=== PATIENT | male | born 1965 | race Caucasian/White ===

== ENCOUNTER 2018-09-05 15:58 | Emergency (ER) | payer OTHER ==
[2018-09-05] MEDS ORDERED: Fluorescein Sodium TOPICAL* 1 MG TEST STRIP OPHTHALMIC ONE (16:54)
[2018-09-05] MEDS ORDERED: Tetracaine 0.5% OPTH.SOL 4 ML* 1 DROP BTL BOTH EYES ONE (16:54)
--- NOTE | 2018-09-05 17:03 | UC ---
Eye Complaint HPI - HPI Summary HPI Summary: 53 yo male presents with right eye injury. He tells me that about 5-6 hours [employer] he was outside and a moving a tree branch out of his way when it snapped back and hit his face. Had some discomfort in his right eye that improved, but since that time has felt that there is something in his eye. Has been watering a bit. No vision changes. He does not wear contacts. - History of Current Complaint Stated Complaint: RIGHT EYE INJURY Time Seen by Provider: 09/05/18 16:54 Hx Obtained From: Patient Onset/Duration: Sudden Onset Severity Initially: Moderate Severity Currently: Moderate Pain Intensity: 6 Pain Scale Used: 0-10 Numeric - Allergies/Home Medications Allergies/Adverse Reactions: Allergies Allergy/AdvReac Type Severity Reaction Status Date / Time No Known Allergies Allergy Verified 09/05/18 16:56 Home Medications: Home Medications Losartan Potassium [Cozaar] 50 mg PO DAILY 09/05/18 [History Confirmed 09/05/18] Vitamin E Mixed [E400 Mixed] 800 unit PO DAILY 09/05/18 [History Confirmed 09/05] PMH/Surg Hx/FS Hx/Imm Hx Cardiovascular History: Hypertension - Surgical History Surgical History: Yes Surgery Procedure, Year, and Place: right bicep tendon repair. right shoulder tendon repair - Family History Known Family History: Positive: None - Social History Occupation: Employed Full-time Lives: With Family Alcohol Use: Occasionally Substance Use Type: None Smoking Status (MU): Former Smoker Type: Smokeless Tobacco Amount Used/How Often: 1-2 times a week Review of Systems All Other Systems Reviewed And Are Negative: Yes Constitutional: Positive: Negative Skin: Positive: Negative Respiratory: Positive: Negative Cardiovascular: Positive: Negative Neurological: Positive: Negative Psychological: Positive: Negative Physical Exam - Summary Physical Exam Summary: GENERAL: WDWN. No pain distress. SKIN: No rashes, sores, lesions, or open wounds. HEENT: Head: AT/NC Eyes: EOM intact. PERRLA. RIGHT EYE: Mild scleral injection. Conjunctiva without erythema or inflammation. No discharge. No FBs appreciated. Fluorescein exam: 2mm abrasion at 12 o'clock position on cornea. No mary sign. Nose: NTTP maxillary and frontal sinus. NECK: Supple. Nontender. No lymphadenopathy. CHEST: No accessory muscle use. Breathing comfortably and in no distress. CV: Pulses intact. Cap refill <2seconds NEURO: Alert. PSYCH: Age appropriate behavior. Triage Information Reviewed: Yes Vital Signs: Vital Signs: Temp Pulse Resp BP Pulse Ox 99.3 F 60 18 125/87 100 09/05/18 16:58 09/05/18 16:58 09/05/18 16:58 09/05/18 16:58 09/05/18 16:58 Vital Signs Reviewed: Yes Eye Complaint Course/Dx - Course Course Of Treatment: Corneal abrasion. Rx for anbx eye drops. - Differential Dx/Diagnosis Provider Diagnosis: Corneal abrasion Discharge - Sign-Out/Discharge Documenting (check all that apply): Patient Departure All imaging exams completed and their final reports reviewed: No Studies - Discharge Plan Condition: Stable Disposition: HOME Prescriptions: Polymyx/Trimethoprim OPTH* [Polytrim OPHTH*] 1 drop RIGHT EYE QID #1 btl Patient Education Materials: Corneal Abrasion (ED) Referrals: Wilma Garsia MD [Primary Care Provider] - Additional Instructions: If you develop a fever, shortness of breath, chest pain, new or worsening symptoms - please call your PCP or go to the ED immediately. - Billing Disposition and Condition Condition: STABLE Disposition: Home - Attestation Statements Provider Attestation: Per institutional requirements, I have reviewed the chart, however, I was not consulted specifically or made aware of this patient by the midlevel provider. I did not personally evaluate, interact with , or disposition this patient.
[2018-09-05 17:04] VITALS: BP 125/87
== END 2018-09-05 17:18 | disposition home or self-care (01) ==
LOC: UCCORT 15:58
DX: S05.01XA Injury of conjunctiva and corneal abrasion without foreign body, right eye, initial encounter (principal); W22.8XXA Striking against or struck by other objects, initial encounter; Y92.9 Unspecified place or not applicable; I10 Essential (primary) hypertension; Z87.891 Personal history of nicotine dependence
CPT/HCPCS: 99202; A9270-GY; G0463